=== PATIENT | male | born 1955 | race Caucasian/White ===

== ENCOUNTER 2024-01-10 12:22 | Emergency (ER) | payer OTHER, SELFPAY ==
[2024-01-10 12:25] VITALS: BP 163/94
[2024-01-10 12:55] LABS: % Basophils 0.4 % (0-2); % Eosinophils 2.1 % (0-6); % Immature Granulocytes 0.2 % (0-0.5); % Lymphocytes 29.6 % (20.5-51.1); % Monocytes 11.4 % (1.7-9.3); % Neutrophils 56.3 % (42.2-75.2); Absolute Eosinophils 0.1 10^3/uL (0-0.7); Absolute Lymphocytes 1.6 10^3/uL (1.2-3.4); Absolute Monocytes 0.6 10^3/uL (0.1-0.6); Hematocrit 41.5 % (39.0-52.0); Mean Corp Hgb Conc. 33.7 g/dL (33.0-37.0); Mean Corpuscular Hgb 28.9 pg (27.0-31.0); Mean Corpuscular Volume 85.6 fL (80.0-94.0); Mean Platelet Volume 10.6 fL (7.4-10.4); Nucleated Red Blood Cells % 0 % (-); Platelet Count 183 10^3/uL (130-400); Red Blood Cell Count 4.85 10^6/uL (4.70-6.10); Red Cell Dist. Width 13.2 % (11.5-14.5); White Blood Cell Count 5.3 10^3/uL (4.8-10.8)
[2024-01-10 13:08] LABS: ALT (SGPT) 18 U/L (0-50); AST (SGOT) 23 U/L (17-59); Albumin 4.4 g/dl (3.5-5.0); Alkaline Phosphatase 87 U/L (38-126); Blood Urea Nitrogen 18 mg/dl (9-20); Calcium 9.5 mg/dl (8.4-10.2); Carbon Dioxide 30 mmol/L (22-30); Chloride 103 mmol/L (98-107); Estimated Creatinine Clearance 68 ml/min; Glucose 113 mg/dl (70-99); Lipase 79 U/L (23-300); Potassium 4.7 mmol/L (3.5-5.1); Sodium 138 mmol/L (135-145); Total Bilirubin 1.1 mg/dl (0.2-1.3); eGFR > 60.00
--- NOTE | 2024-01-10 14:52 | ED.GENMED ---
History of Present Illness
General
Chief Complaint: Abdominal Pain
Source: patient
Exam Limitations: none
Time Seen by Provider: 01/10/24 14:41
Nursing documentation reviewed up to this point in time: agreed with
History of Present Illness
History of Present Illness:
Patient to ED with complaint of LLQ abdominal pain. States pain started 'weeks ago' but has recently started to worsen. States he was evaluated by PCP 2 weeks ago and checked for hernia. Neg. exam. Denies fever/chills. +nausea, no vomiting or
diarrhea. Last PM this AM. Last colonoscopy <5yrs - reports normal exam. Eating and drinking normally. Brought to ED by spouse for eval.
Past History
Past History
ED Past Medical History: GERD and Hypercholesterolemia
ED Past Surgical History: Orthopedic and Other (inguinal hernia repair)
Social History
Tobacco: Non-smoker
Alcohol: Occasional
Drug: None
Personal:
Review of Systems
Review of Systems
Allergies reviewed?: Yes
All Other Systems: ROS reviewed and negative except as documented in HPI and ROS
Constitutional: Reports no symptoms
EENT: Reports no symptoms
Respiratory: Reports no symptoms
Cardiac: Reports no symptoms
ABD/GI: Reports abdominal pain (LLQ) and nausea
: Reports no symptoms
Musculoskeletal: Reports no symptoms
Skin: Reports no symptoms
Neurological: Reports no symptoms
Psychiatric: Reports no symptoms
Phy Exam
General Physical Exam
General Presentation: well appearing and no apparent distress
General age: appears stated age
General Skin: warm and dry
General Habitus: normal
General Mental: alert
Cardiovascular Exam
Cardiovascular Exam: regular rate/rhythm and no edema
Gastrointestinal Exam
Gastrointestinal Exam: normal bowel sounds, soft, no organomegaly, no pulsatile mass, non distended, no cva tenderness and no inguinal hernia (Left. Reducable.)
Palpation: left upper quadrant: No tenderness, left lower quadrant: Moderate tenderness, right upper quadrant: No tenderness and right lower quadrant: No tenderness
Musculoskeletal Exam
Musculoskeletal Exam: full ROM and neuro vasc intact
Skin Exam
Skin Exam: normal color, warm/dry and no rash
Psychiatric Exam
Psychiatric Exam: normal mood/affect
Course
Orders/Labs/Results
Orders:
Orders
01/10/24 12:34
Complete Blood Count/With Diff Urgent
Comprehensive Metabolic Panel Urgent
Lipase Urgent
01/10/24 14:51
CT Abd/pel W Iv And Oral Contr Urgent
Comment:
Reason For Exam: LLQ pain
Iohexol [Omnipaque] See Protocol PO NOW STA
01/10/24 15:05
Urinalysis Reflex To Culture Urgent
Date Specimen was Collected: 01/10/24
Time Specimen was Collected: 15:03
01/10/24 18:35
Hydrocodone 5/APAP 325 [[place] 5/325] 1 tablet PO NOW STA
Abnormal Lab Results
01/10/24
12:34
MPV 10.6 H fL
(7.4-10.4)
Monocytes % 11.4 H %
(1.7-9.3)
Glucose 113 H mg/dl
(70-99)
01/10/24 12:34
01/10/24 12:34
Vital Signs
Initial and Last Documented VS:
Initial Vital Signs
Temp Pulse Resp BP Pulse Ox
98.5 F 65 16 163/94 99
01/10/24 12:25 01/10/24 12:25 01/10/24 12:25 01/10/24 12:25 01/10/24 12:25
Last Documented Vital Signs
Temp Pulse Resp BP Pulse Ox
98.5 F 63 15 153/106 98
01/10/24 12:25 01/10/24 18:30 01/10/24 18:30 01/10/24 18:29 01/10/24 18:30
*Radiology
Radiology exam reviewed: radiology read reviewed
*Pulse Oximetry
Patient hypoxic: no
*Critical Care Note
Total Time (30-74mins, 75-104mins- exclusive of procedures): Not Applicable
Update Note
Update Note:
CT report reviewed. Discussed with pateint and spouse. Dr. Villagomez consuted. Patient is discharged home and will call the office on Saturday for appointment. Given instructions on s/s to return to ED and he is agreeable to plan
ED Attending Note
-
Portions of this chart may have been created with voice recognition software.� Occasional wrong word or��sound alike� substitutions may have occurred due to the inherent limitations of voice recognition software.
Discharge Plan
Departure
Patient Disposition: Home (Routine Discharge)
Date of Disposition: 01/10/24
Time of Disposition: 18:33
Patient with high blood pressure during this ER visit?: No
Condition: Good
Discharge Problem:
Inguinal hernia
Instructions: Groin Hernia (DC)
Prescriptions:
New
hydrocodone-acetaminophen 5-325 mg tablet
1 tab PO Q4H PRN (Reason: Pain) Qty: 12 0RF
Referrals:
Alfonso Villagomez MD [Active] - (Call office on Saturday AM for appointment.)
Reggie Hernandez MD [Family Provider] -
Activity Restrictions/Additional Instructions:
Return to emergency department immediately for fever/chills, increasing pain, vomiting or for any further concerns.
Interventions
Interventions:
*Risk Screen - Suicide Last Done: 01/10/24 12:25
*Neglect/Abuse Screening Last Done: 01/10/24 12:25
ED- Fall Risk Assessment Last Done: 01/10/24 12:25
AJ-[id number] Assessment Last Done: 01/10/24 15:11
Discharge Date and Time
Print Language: ROMANSH
[2024-01-10] MEDS: OMNIPAQUE 50 ML PO (15:06)
[2024-01-10 15:17] LABS: Urine Albumin Trace (Neg - Trace); Urine Bilirubin Negative (Negative); Urine Character Clear (Clear); Urine Color Yellow; Urine Glucose Negative (Negative); Urine Ketone Negative (Negative); Urine Leukocyte Negative (Negative); Urine Nitrite Negative (Negative); Urine Occult Blood Negative (Negative); Urine Urobilinogen 1+ (Neg - 1+)
[2024-01-10 18:29] VITALS: BP 153/106
[2024-01-10] MEDS: NORCO 5/325 1 TABLET PO (18:47)
== END 2024-01-10 18:59 | disposition home or self-care (01) ==
LOC: EMR 12:22
PROVIDERS: Nurse Practitioner; Student in an Organized Health Care Education/Training Program; EMERGENCY PHYSICIAN Student in an Organized Health Care Education/Training Program; FAMILY PHYSICIAN Internal Medicine
DX: K40.90 Unilateral inguinal hernia, without obstruction or gangrene, not specified as recurrent (principal); K21.9 Gastro-esophageal reflux disease without esophagitis; E78.00 Pure hypercholesterolemia, unspecified
CPT/HCPCS: 99284; 74177; 80053; 81003; 83690; 85025; Q9967

== ENCOUNTER 2024-02-19 06:02 | Day surgery (SDC) | payer OTHER, SELFPAY ==
[2024-02-14 09:00] LABS: % Basophils 0.4 % (0-2); % Eosinophils 2.7 % (0-6); % Immature Granulocytes 0.2 % (0-0.5); % Lymphocytes 28.5 % (20.5-51.1); % Monocytes 11.3 % (1.7-9.3); % Neutrophils 56.9 % (42.2-75.2); Absolute Eosinophils 0.1 10^3/uL (0-0.7); Absolute Lymphocytes 1.5 10^3/uL (1.2-3.4); Absolute Monocytes 0.6 10^3/uL (0.1-0.6); Hematocrit 40.3 % (39.0-52.0); Hemoglobin 13.8 g/dL (13.0-18.0); Mean Corp Hgb Conc. 34.2 g/dL (33.0-37.0); Mean Corpuscular Hgb 29.1 pg (27.0-31.0); Mean Corpuscular Volume 84.8 fL (80.0-94.0); Mean Platelet Volume 10.9 fL (7.4-10.4); Nucleated Red Blood Cells % 0 % (-); Platelet Count 178 10^3/uL (130-400); Red Blood Cell Count 4.75 10^6/uL (4.70-6.10); Red Cell Dist. Width 13.2 % (11.5-14.5); White Blood Cell Count 5.2 10^3/uL (4.8-10.8)
[2024-02-14 09:36] LABS: Blood Urea Nitrogen 21 mg/dl (9-20); Calcium 9.6 mg/dl (8.4-10.2); Carbon Dioxide 26 mmol/L (22-30); Chloride 104 mmol/L (98-107); Glucose 113 mg/dl (70-99); Potassium 4.4 mmol/L (3.5-5.1); Sodium 141 mmol/L (135-145); eGFR > 60.00
--- NOTE | 2024-02-14 15:46 | PTCARENOTE ---
Abnormal EKG 02/14/24. Dr. Rao aware. No intervention needed.
[2024-02-19] VITALS (10 sets, daily range): BP systolic 126–153; BP diastolic 64–94; BMI 32.0
[2024-02-19] MEDS: TYLENOL 1000 MG PO (06:29)
[2024-02-19] MEDS: NORMOSOL-R/PLASMALYTE-A 1000 IV (06:29)
[2024-02-19] MEDS: DILAUDID 0.5 MG IV ×2 (09:37→09:56)
[2024-02-19] MEDS: DILAUDID 0.25 MG IV (10:21)
[2024-02-19] MEDS: ROXICODONE 5 MG PO (12:05)
--- NOTE | 2024-02-19 12:07 | PTCARENOTE ---
Patient has sharp pain in the right lower abdomen rated 7/10 after dressing and bending. Patient medicated with 1 oxycodone prior to discharge. Will monitor patient. Nothing noted or swollen on abdomen.
== END 2024-02-19 12:28 | disposition home or self-care (01) ==
LOC: SDS 06:02
PROVIDERS: ATTENDING PHYSICIAN Surgery; FAMILY PHYSICIAN Family Medicine
DX: K40.90 Unilateral inguinal hernia, without obstruction or gangrene, not specified as recurrent (principal)
CPT/HCPCS: 49650; 36415; 80048; 85025; 93005; C1781

== ENCOUNTER → 2024-09-14 14:46 | Outpatient (REF) | payer OTHER, SELFPAY | LOC: MRI 3T 14:46 | PROVIDERS: ATTENDING PHYSICIAN Physician Assistant; FAMILY PHYSICIAN Internal Medicine | DX: H90.A22 Sensorineural hearing loss, unilateral, left ear, with restricted hearing on the contralateral side (principal) | CPT/HCPCS: 70553; A9575 ==

== ENCOUNTER 2025-02-20 14:31 | Emergency (ER) | payer OTHER, SELFPAY ==
[2025-02-20 14:33] VITALS: BP 167/94
--- NOTE | 2025-02-20 18:31 | ED.GENMED ---
History of Present Illness
<TERESA Langford - Last Filed: 02/20/25 23:26>
General
Chief Complaint: Abdominal Pain
Source: patient
Exam Limitations: none
Time Seen by Provider: 02/20/25 17:13
Nursing documentation reviewed up to this point in time: agreed with
History of Present Illness
History of Present Illness:
69-year-old male with past medical history of inguinal hernia presents to the ER for evaluation. Patient reports he is scheduled for inguinal hernia repair in March by Dr. Villagomez. He reports last night he started with nausea and today start
with pain in the left inguinal area. He also feels pain in his back. He does report this morning he had to strain to have a bowel movement typically he has softer stools. He does have a history of kidney stones. He denies any urinary frequency
or urgency. Denies any hematuria.
Past History
<TERESA Langford - Last Filed: 02/20/25 23:26>
Past History
ED Past Medical History: GERD and Hypercholesterolemia
ED Past Surgical History: Orthopedic and Other (inguinal hernia repair)
Social History
Tobacco: Non-smoker
Alcohol: Occasional
Drug: None
Personal:
Phy Exam
<TERESA Langford - Last Filed: 02/20/25 23:26>
General Physical Exam
General Presentation: no apparent distress
General age: appears stated age
General Skin: warm and dry
General Habitus: normal
General Mental: alert
General Hydration: appears well hydrated
Gastrointestinal Exam
Gastrointestinal Exam: soft and other (Fullness and tenderness in left inguinal hernia)
Course
<TERESA Langford - Last Filed: 02/20/25 23:26>
Orders/Labs/Results
Orders:
Orders
02/20/25 18:48
CT Abd/Pel (IV only)-[facility] only Urgent
Comment:
Reason For Exam: pain to left groin + known inguinal hernia
IV Insert/Care/Rem.- Treatment PRN
0.9% Sodium Chloride 1000 ml [Nss] 1,000 ml IV BOLUS
Ketorolac [Toradol] 15 mg IV NOW STA
Ondansetron Injectable [Zofran] 4 mg IV NOW STA
02/20/25 18:50
Complete Blood Count/With Diff Urgent
Comprehensive Metabolic Panel Urgent
Lipase Urgent
02/20/25 20:01
Urinalysis Reflex To Culture Urgent
Date Specimen was Collected: 02/20/25
Time Specimen was Collected: 19:02
Urine Microscopic Reflex Cult Urgent
02/20/25 22:12
HYDROmorphone [Dilaudid] 0.5 mg IV NOW STA
Abnormal Lab Results
02/20/25 02/20/25
18:50 20:01
RBC 4.63 L 10^6/uL
(4.70-6.10)
Hgb 12.7 L g/dL
(13.0-18.0)
Hct 38.4 L %
(39.0-52.0)
Absolute Monos (auto) 0.7 H 10^3/uL
(0.1-0.6)
Monocytes % 10.1 H %
(1.7-9.3)
Glucose 119 H mg/dl
(70-99)
Ur Occult Blood Reflex 1+ A
(Negative)
Urine RBC 7-10 A /HPF
(0-2)
Urine Bacteria (Reflex) Few A
(Negative)
Urine Albumin (Reflex) 2+ A
(Neg - Trace)
02/20/25 18:50
02/20/25 18:50
Vital Signs
Initial and Last Documented VS:
Initial Vital Signs
Temp Pulse Resp BP Pulse Ox
98.5 F 69 16 167/94 97
02/20/25 14:33 02/20/25 14:33 02/20/25 14:33 02/20/25 14:33 02/20/25 14:33
Last Documented Vital Signs
Temp Pulse Resp BP Pulse Ox
98.5 F 56 15 155/138 98
02/20/25 14:33 02/20/25 21:44 02/20/25 21:44 02/20/25 23:00 02/20/25 23:00
Imposer consulted with Physician
Imposer consulted with physician?: Yes
Name of Physician Consulted: Elizabeth
<Terence Johnson, DO - Last Filed: 02/20/25 23:08>
Orders/Labs/Results
Orders:
Orders
02/20/25 18:48
CT Abd/Pel (IV only)-[facility] only Urgent
Comment:
Reason For Exam: pain to left groin + known inguinal hernia
IV Insert/Care/Rem.- Treatment PRN
0.9% Sodium Chloride 1000 ml [Nss] 1,000 ml IV BOLUS
Ketorolac [Toradol] 15 mg IV NOW STA
Ondansetron Injectable [Zofran] 4 mg IV NOW STA
02/20/25 18:50
Complete Blood Count/With Diff Urgent
Comprehensive Metabolic Panel Urgent
Lipase Urgent
02/20/25 20:01
Urinalysis Reflex To Culture Urgent
Date Specimen was Collected: 02/20/25
Time Specimen was Collected: 19:02
Urine Microscopic Reflex Cult Urgent
02/20/25 22:12
HYDROmorphone [Dilaudid] 0.5 mg IV NOW STA
Abnormal Lab Results
02/20/25 02/20/25
18:50 20:01
RBC 4.63 L 10^6/uL
(4.70-6.10)
Hgb 12.7 L g/dL
(13.0-18.0)
Hct 38.4 L %
(39.0-52.0)
Absolute Monos (auto) 0.7 H 10^3/uL
(0.1-0.6)
Monocytes % 10.1 H %
(1.7-9.3)
Glucose 119 H mg/dl
(70-99)
Ur Occult Blood Reflex 1+ A
(Negative)
Urine RBC 7-10 A /HPF
(0-2)
Urine Bacteria (Reflex) Few A
(Negative)
Urine Albumin (Reflex) 2+ A
(Neg - Trace)
02/20/25 18:50
02/20/25 18:50
Vital Signs
Initial and Last Documented VS:
Initial Vital Signs
Temp Pulse Resp BP Pulse Ox
98.5 F 69 16 167/94 97
02/20/25 14:33 02/20/25 14:33 02/20/25 14:33 02/20/25 14:33 02/20/25 14:33
Last Documented Vital Signs
Temp Pulse Resp BP Pulse Ox
98.5 F 56 15 155/138 98
02/20/25 14:33 02/20/25 21:44 02/20/25 21:44 02/20/25 23:00 02/20/25 23:00
<TERESA Langford - Last Filed: 02/20/25 23:26>
MDM/Problems Addressed
Differential Diagnosis Includes:
Not limited to hernia, diverticulitis, renal colic
MDM/Problems Addressed:
Patient presented with left inguinal hernia known inguinal hernia and is scheduled for repair in March pain increased today. CAT scan was done which does show interval increase in size of left hernia containing a segment of descending colon with
no evidence of obstruction approximately 4.7 cm. No fluid seen within the hernia sac. Case reviewed with ED physician area soft not reducible. Case discussed with surgery on-call Dr. Dubois who recommends outpatient follow-up with patient to call
the office Saturday for appointment this week
Chronic conditions affecting care:
Known inguinal hernia
<TERESA Langford - Last Filed: 02/20/25 23:26>
*Radiology
Radiology exam reviewed: radiology read reviewed
*Pulse Oximetry
SaO2: 97
Oxygen Mode of Delivery: Room air
Patient hypoxic: no
*Critical Care Note
Total Time (30-74mins, 75-104mins- exclusive of procedures): Not Applicable
<TERESA Langford - Last Filed: 02/20/25 23:26>
Patient Management
Discussion with other providers: Supervisor Cartography (Dr Dubois )
ED Attending Note
<TERESA Langford - Last Filed: 02/20/25 23:26>
-
Portions of this chart may have been created with voice recognition software.� Occasional wrong word or��sound alike� substitutions may have occurred due to the inherent limitations of voice recognition software.
<Terence Johnson, - Last Filed: 02/20/25 23:08>
ED Attending Note
Patient seen and examined by attending physician: Yes
ED Attending Note:
I have reviewed and agree with history and treatment plan by TERESA Peralta. My exam revealed soft but nonreducible left inguinal hernia. No signs of obstruction. Patient afebrile. Discussed with Dr. Dubois, general surgery who recommends
outpatient follow-up. No indication for hospitalization at this time. Return precautions given
Discharge Plan
Departure
Patient Disposition: Home (Routine Discharge)
Date of Disposition: 02/20/25
Time of Disposition: 23:07
Patient with high blood pressure during this ER visit?: Yes
Covid-19: Not Applicable
Discharge Problem:
Inguinal hernia
Instructions: Groin hernias, BLOOD PRESSURE
Prescriptions:
No Action
latanoprost 0.005 % Drops
1 drp OPHTHALMIC (EYE) DAILY
atorvastatin 20 mg Tablet
20 mg PO QPM
omeprazole 40 mg Capsule,Delayed Release(Dr/Ec)
40 mg PO DAILY
tamsulosin [Flomax] 0.4 mg Capsule
0.4 mg PO DAILY
acetaminophen [acetaminophen] 325 mg tablet
650 mg PO Q4HPRN PRN (Reason: mild pain) Qty: 1 0RF
ibuprofen 200 mg tablet
400 - 600 mg PO Q6HPRN PRN (Reason: moderate pain) Qty: 1 0RF
oxycodone 5 mg tablet
5 mg PO Q4HPRN PRN (Reason: breakthrough/severe pain) Qty: 5 0RF
Referrals:
Walter Dubois MD [Active, Surgical]
Reggie Hernandez MD [Family Provider, Internal Medicine]
Activity Restrictions/Additional Instructions:
As discussed please call surgery Saturday morning for an appointment next week. Return if any worsening of symptoms if any increased pain fever chills nausea vomiting.
Also please take [id number] stool softener.
Interventions
Interventions:
*Risk Screen - Suicide Last Done: 02/20/25 14:34
*Neglect/Abuse Screening Last Done: 02/20/25 14:34
Discharge Date and Time
Print Language: BELIZEAN
[2025-02-20] MEDS: NSS 1000 IV (18:56)
[2025-02-20] MEDS: TORADOL 15 MG IV (18:56)
[2025-02-20] MEDS: ZOFRAN 4 MG IV (18:57)
[2025-02-20 19:01] LABS: Hematocrit 38.4 % (39.0-52.0); Hemoglobin 12.7 g/dL (13.0-18.0); Mean Corp Hgb Conc. 33.1 g/dL (33.0-37.0); Mean Corpuscular Volume 82.9 fL (80.0-94.0); Nucleated Red Blood Cells % 0 % (-); Platelet Count 184 10^3/uL (130-400); Red Cell Dist. Width 13.6 % (11.5-14.5)
[2025-02-20 19:24] LABS: ALT (SGPT) 18 U/L (0-50); AST (SGOT) 21 U/L (17-59); Albumin 4.3 g/dl (3.5-5.0); Alkaline Phosphatase 91 U/L (38-126); Blood Urea Nitrogen 14 mg/dl (9-20); Calcium 9.0 mg/dl (8.4-10.2); Carbon Dioxide 30 mmol/L (22-30); Chloride 106 mmol/L (98-107); Glucose 119 mg/dl (70-99); Lipase 72 U/L (23-300); Potassium 4.6 mmol/L (3.5-5.1); Sodium 139 mmol/L (135-145); Total Protein 7.2 g/dl (6.3-8.2); eGFR > 60.00
[2025-02-20 20:06] LABS: Urine Character Clear (Clear)
[2025-02-20 20:13] LABS: Urine Squamous Cell 0-2 /LPF (Few)
[2025-02-20 21:44] VITALS: BP 154/89
[2025-02-20] MEDS: DILAUDID 0.5 MG IV (22:17)
[2025-02-20 23:00] VITALS: BP 155/138
[2025-02-20 23:21] VITALS: BMI 32.3
== END 2025-02-20 23:36 | disposition home or self-care (01) ==
LOC: EMR 14:31
PROVIDERS: Nurse Practitioner; EMERGENCY PHYSICIAN Emergency Medicine; FAMILY PHYSICIAN Internal Medicine
DX: K40.90 Unilateral inguinal hernia, without obstruction or gangrene, not specified as recurrent (principal); E78.00 Pure hypercholesterolemia, unspecified; K21.9 Gastro-esophageal reflux disease without esophagitis; Z87.442 Personal history of urinary calculi
CPT/HCPCS: 99284; 96374; 96375 ×2; 96361; 74177; 80053; 81003; 81015; 83690; 85025; Q9967

== ENCOUNTER 2025-03-03 06:34 | Day surgery (SDC) | payer OTHER, SELFPAY ==
[2025-03-03] VITALS (9 sets, daily range): BP systolic 126–174; BP diastolic 73–98; BMI 31.4
[2025-03-03] MEDS: TYLENOL 1000 MG PO (11:22)
[2025-03-03] MEDS: NORMOSOL-R/PLASMALYTE-A 1000 IV (11:23)
[2025-03-03] MEDS: DILAUDID 0.5 MG IV ×2 (14:26→14:52)
[2025-03-03] MEDS: ROXICODONE 5 MG PO (15:45)
== END 2025-03-03 16:09 | disposition home or self-care (01) ==
LOC: SDS 06:34
PROVIDERS: ATTENDING PHYSICIAN Surgery
DX: K40.91 Unilateral inguinal hernia, without obstruction or gangrene, recurrent (principal)
CPT/HCPCS: 49520; 93005; C1781

== ENCOUNTER → 2025-05-01 08:50 | Outpatient (REF) | payer OTHER, SELFPAY | LOC: RAD 08:50 | PROVIDERS: ATTENDING PHYSICIAN Physician Assistant; FAMILY PHYSICIAN Internal Medicine | DX: H90.A22 Sensorineural hearing loss, unilateral, left ear, with restricted hearing on the contralateral side (principal) | CPT/HCPCS: 70480 ==